=== PATIENT | female | born 1975 | race Caucasian/White ===

== ENCOUNTER 2016-08-11 18:52 | Emergency (ER) | payer MEDICAID ==
[~2016-08-11] VITALS: Ht 167.6 cm; Wt 64.4 kg
[2016-08-11 19:27] VITALS: BP 151/84
[2016-08-11] MEDS ORDERED: Metoclopramide 10mg/10ml Liq ORAL ONE (19:30)
[2016-08-11 20:02] LABS: APPEARANCE,URINE CLEAR; KETONES,URINE NEGATIVE (NEGATIVE); LEUKOCYTE ESTERASE ,URINE 1+ (NEGATIVE); NITRITE,URINE NEGATIVE (NEGATIVE); PH,URINE 7 (4.5-8.0); PROTEIN,URINE NEGATIVE (NEGATIVE); UROBILINOGEN,URINE NORMAL MG/DL (0.0-1.0)
[2016-08-11 20:07] LABS: AMORPHOUS SEDIMENT,UR FEW /LPF; BACTERIA,URINE FEW /HPF; RBC,URINE 0-2 /HPF (0 - 2); SQUAMOUS EPITHELIAL CELL,UR FEW /LPF (NONE/OCC); WBC,URINE 0-2 /HPF (0 - 2)
[2016-08-11] MEDS ORDERED: PHENAZOPYRIDIN100 MG ORAL (20:30)
[2016-08-11] MEDS ORDERED: NITROFURANTOIN100 M2 ORAL (20:30)
[2016-08-11 20:54] VITALS: BP 122/67
--- NOTE | 2016-08-11 21:14 | Emergency Room Report ---
History of Present Illness General Chief Complaint: Abdominal Pain Source: Patient Present Illness HPI The patient is a 41-year-old female presenting for dysuria and right flank pain which began 5 days prior. The patient describes the pain as a 5/10 burning sensation which occurs only with urination. The patient also has right-sided lower back pain which is also described as a 5/10 dull ache. The patient denies other symptoms including nausea, vomiting, hematuria, vaginal discharge, no motor is urinary discharge, fever, chills Allergies: Coded Allergies: No Known Allergies (Unverified , 08/11/16) Patient History Past Medical History: see triage record Pertinent Family History: none Last Menstrual Period: 07/28/16 Now: No Reviewed Nursing Documentation: PMH: Agreed, PSxH: Agreed Nursing Documentation-PMH Past Medical History: No Stated History Review of Systems All Other Systems: negative except mentioned in HPI Physical Exam Vital Signs Date Time Temp Pulse Resp B/P Pulse Ox O2 Delivery O2 Flow Rate FiO2 08/11/16 19:17 98.4 66 16 151/84 99 Room Air Sp02 EP Interpretation: reviewed, normal General Appearance: no apparent distress, alert, GCS 15, non-toxic Head: normocephalic, atraumatic Eyes: bilateral eye PERRL, bilateral eye normal inspection ENT: hearing grossly normal, normal pharynx, no angioedema, normal voice Gastrointestinal: normal bowel sounds, soft, non-distended, no guarding, no rebound, tenderness - suprapubic Rectal: deferred Genitourinary: CVA tenderness (R) Musculoskeletal: back normal, gait/station normal, normal range of motion, non- tender Neurologic: alert, oriented x3, responsive, motor strength/tone normal, sensory intact, speech normal Psychiatric: judgement/insight normal, memory normal, mood/affect normal, no suicidal/homicidal ideation Skin: normal color, no rash, warm/dry, well hydrated Lymphatic: no adenopathy Medical Decision Making PA Attestation Dr. Porter is my supervising physician. Patient management was discussed with my supervising physician Diagnostic Impression: Primary Impression: Urinary tract infection ER Course The patient is a 41-year-old female presenting for dysuria and right flank pain which began 5 days prior Differential diagnosis considered but not limited to: UTI, vaginitis, pyelonephritis, pyelonephrosis, PID, ectopic PE: Vitals WNL. NAD. Abd is soft. Normal BS. + suprapubic TTP. No RLQ TTP. + R CVA tenderness. Skin warm and dry. Preg: neg UA: 1+ leuk esterase with 0-2 WBC. The patient was given Tylenol, Reglan, and IV fluids and is feeling better. The patient will be treated for urinary tract infection based on symptoms.ER precautions given. Pt rashi FU with pmd Laboratory Tests Test 08/11/16 19:26 Urine Color Pale yellow Urine Appearance Clear Urine pH 7 (4.5-8.0) Urine Specific [place] 1.010 (1.005-1.035) Urine Protein Negative (NEGATIVE) Urine Glucose (UA) Negative (NEGATIVE) Urine Ketones Negative (NEGATIVE) Urine Occult Blood 1+ (NEGATIVE) H Urine Nitrite Negative (NEGATIVE) Urine Bilirubin Negative (NEGATIVE) Urine Urobilinogen Normal MG/DL (0.0-1.0) Urine Leukocyte Esterase 1+ (NEGATIVE) H Urine RBC 0-2 /HPF (0 - 2) Urine WBC 0-2 /HPF (0 - 2) Urine Squamous Epithelial Cells Few /LPF (NONE/OCC) Urine Amorphous Sediment Few /LPF (NONE) H Urine Bacteria Few /HPF (NONE) Urine HCG, Qualitative Negative Lab Results Impression Preg: neg UA: 1+ leuk esterase with 0-2 WBC. Last Vital Signs Date Time Temp Pulse Resp B/P Pulse Ox O2 Delivery O2 Flow Rate FiO2 08/11/16 20:54 73 12 122/67 100 Room Air 08/11/16 20:38 98.5 Status: improved Disposition: HOME, SELF-CARE Condition: Improved Scripts Phenazopyridine Hcl* (PYRIDIUM*) 100 Mg Tablet 100 MG ORAL THREE TIMES A DAY, #9 TAB Prov: TERZIAN,MARSHALL P.A. 08/11/16 Nitrofurantoin Monohyd/M-Cryst* (MACROBID 100 MG*) 100 Mg Capsule 100 MG ORAL EVERY 12 HOURS, #14 CAP Prov: TERZIAN,MARSHALL P.A. 08/11/16 Patient Instructions: Urinary Tract Infection Additional Instructions: I discussed my findings with the patient. All questions and concerns have been answered. Treatment and medication compliance have been addressed. I advised the patient that they need to follow up with PMD in 3-5 days. Return to ED if symptoms worsen, new symptoms arise, or if needed for any reason. Patient verbalized understanding of discharge instructions. MARSHALL BATISTA Aug 11, 2016 21:14
== END 2016-08-11 20:58 | disposition home or self-care (01) ==
LOC: EMR 20:04
DX: N39.0 Urinary tract infection, site not specified (principal)
CPT/HCPCS: 81001; 81025; 96360

== ENCOUNTER 2017-01-03 22:48 | Emergency (ER) | payer MEDICAID ==
[~2017-01-03] VITALS: Ht 172.7 cm; Wt 68.9 kg
[~2017-01-03 22:48] MED LIST: NITROFURANTOIN100 M2 ORAL; PHENAZOPYRIDIN100 MG ORAL
[2017-01-03] MEDS ORDERED: NKM (22:55)
[2017-01-03] MEDS ORDERED: Oxycodone/Acetaminophen 5-325 ORAL ONE (23:00)
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
[2017-01-03] MEDS ORDERED: ROBAXIN-750750 MG PO (23:15)
[2017-01-03] MEDS ORDERED: IBUPROFEN600 MG ORAL (23:15)
[2017-01-04 00:13] VITALS: BP 145/90
[2017-01-04 00:15] VITALS: BP 145/90
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
== END 2017-01-04 00:10 | disposition home or self-care (01) ==
LOC: EMR 01-04 00:10
DX: M54.2 Cervicalgia (principal); M25.531 Pain in right wrist; M79.631 Pain in right forearm; M79.641 Pain in right hand; V49.50XA Passenger injured in collision with unspecified motor vehicles in traffic accident, initial encounter; Y92.414 Local residential or business street as the place of occurrence of the external cause
CPT/HCPCS: 72125; 99284

== ENCOUNTER 2017-05-11 10:21 | Emergency (ER) | payer MEDICAID ==
[~2017-05-11] VITALS: Ht 165.1 cm; Wt 71.2 kg
[~2017-05-11 10:21] MED LIST changes: +IBUPROFEN600 MG ORAL; +NKM; +ROBAXIN-750750 MG PO
[2017-05-11] MEDS ORDERED: CYCLOBENZAPRINE10 MG ORAL (10:56)
[2017-05-11] MEDS ORDERED: IBUPROFEN600 MG ORAL (10:56)
[2017-05-11 11:00] VITALS: BP 113/60
[2017-05-11] MEDS ORDERED: Cyclobenzaprine 10mg Tab ORAL ONE (11:00)
[2017-05-11 11:15] VITALS: BP 113/60
--- NOTE | 2017-05-11 15:21 | Emergency Room Report ---
History of Present Illness General Chief Complaint: Chest Pain Source: Patient Present Illness HPI 41-year-old female presents ED for evaluation. States the last 3 days she's been experiencing pain in her chest right-sided neck and right arm. Pain is sharp, 6/10, nonradiating and worse with deep breaths and movement. Denies shortness of breath. Denies cardiac history. Denies smoking or drug use. No other aggravating or leading factors. Denies any other associated symptoms Allergies: Coded Allergies: No Known Allergies (Unverified , 08/11/16) Patient History Past Medical History: none Past Surgical History: none Pertinent Family History: none Social History: Denies: smoking, alcohol use, drug use Last Menstrual Period: 04/22/17 Now: No Immunizations: UTD Reviewed Nursing Documentation: PMH: Agreed, PSxH: Agreed Nursing Documentation-PMH Past Medical History: No Stated History Review of Systems All Other Systems: negative except mentioned in HPI Physical Exam Vital Signs Date Time Temp Pulse Resp B/P (MAP) Pulse Ox O2 Delivery O2 Flow Rate FiO2 05/11/17 10:42 98.8 84 16 134/69 100 Room Air Sp02 EP Interpretation: reviewed, normal General Appearance: no apparent distress, alert, GCS 15, non-toxic Head: normocephalic, atraumatic Eyes: bilateral eye normal inspection, bilateral eye PERRL ENT: hearing grossly normal, normal pharynx, no angioedema, normal voice Neck: full range of motion, no bony tend, supple/symm/no masses, tender lateral Respiratory: chest non-tender, normal breath sounds, speaking full sentences, other - reproducible chest wall pain Cardiovascular #1: regular rate, rhythm, no edema Cardiovascular #2: 2+ carotid (R), 2+ carotid (L), 2+ radial (R), 2+ radial (L) , 2+ dorsalis pedis (R), 2+ dorsalis pedis (L) Gastrointestinal: normal bowel sounds, non tender, soft, non-distended, no guarding, no rebound Rectal: deferred Genitourinary: normal inspection, no CVA tenderness Musculoskeletal: back normal, gait/station normal, normal range of motion, non- tender Neurologic: alert, oriented x3, responsive, motor strength/tone normal, sensory intact, speech normal Psychiatric: judgement/insight normal, memory normal, mood/affect normal, no suicidal/homicidal ideation Reflexes: 3+ bicep (R), 3+ bicep (L), 3+ tricep (R), 3+ tricep (L), 3+ knee (R) , 3+ knee (L) Skin: normal color, no rash, warm/dry, well hydrated Lymphatic: no adenopathy Medical Decision Making Diagnostic Impression: Primary Impression: Chest wall pain ER Course Hospital Course 41-year-old female presents to ED complaining of R sided chest pain, neck pain no trauma Differential diagnoses include: Fracture, dislocation, sprain, contusion, bursitis Clinical course Patient placed on stretcher. After initial history, physical exam reveals an middle-aged female in no acute distress. There is some producible right-sided chest wall pain. Right-sided neck pain. No midline pain. Some pain over the deltoid. EKG unremarkable - NSR no acute ischemic changes interpreted by me I believe pain is muscular. Patient has no risk factors suggestive of cardiac etiology. Patient be safely discharged home Diagnosis - chest wall pain Stable and discharged to home with prescription for Motrin. Followup with PMD. Return to ED if symptoms recur or worsen EKG Diagnostic Results Rate: normal Rhythm: NSR ST Segments: no acute changes ASA given to the pt in ED: No Rhythm Strip Diag. Results EP Interpretation: yes Rhythm: NSR, no PVC's, no ectopy Last Vital Signs Date Time Temp Pulse Resp B/P (MAP) Pulse Ox O2 Delivery O2 Flow Rate FiO2 05/11/17 10:42 98.8 84 16 134/69 100 Room Air Status: improved Disposition: HOME, SELF-CARE Condition: Stable Scripts Cyclobenzaprine Hcl* (FLEXERIL*) 10 Mg Tablet 10 MG ORAL TID Y for Muscle Spasm, #20 TAB Prov: STEVE CARVAJAL M.D. 05/11/17 Ibuprofen* (MOTRIN*) 600 Mg Tablet 600 MG ORAL Q8H Y for For Pain, #30 TAB 0 Refills Prov: STEVE CARVAJAL M.D. 05/11/17 Referrals: NON PHYSICIAN (PCP) Patient Instructions: Chest Wall Pain, [id number] STEVE CARVAJAL M.D. May 11, 2017 15:21
== END 2017-05-11 11:15 | disposition home or self-care (01) ==
LOC: EMR 11:00
DX: R07.89 Other chest pain (principal)
CPT/HCPCS: 99284

== ENCOUNTER 2018-08-02 11:13 | Emergency (ER) | payer MEDICAID ==
[~2018-08-02] VITALS: Ht 127 cm; Wt 68.0 kg
[~2018-08-02 11:13] MED LIST changes: +CYCLOBENZAPRINE10 MG ORAL
[2018-08-02 11:41] VITALS: BP 130/81
--- NOTE | 2018-08-02 11:41 | NUR ---
ED Nurse Note:pt. came with c/o chest pain radiating to left arm and abd pain, EKG done
[2018-08-02 12:10] LABS: BILIRUBIN, URINE NEGATIVE (NEGATIVE); COLOR,URINE PALE YELLOW; GLUCOSE, URINE (UA) NEGATIVE (NEGATIVE); KETONES,URINE NEGATIVE (NEGATIVE); LEUKOCYTE ESTERASE ,URINE 3+ (NEGATIVE); NITRITE,URINE NEGATIVE (NEGATIVE); PH,URINE 7 (4.5-8.0); PROTEIN,URINE NEGATIVE (NEGATIVE); UROBILINOGEN,URINE NORMAL MG/DL (0.0-1.0)
[2018-08-02 12:15] LABS: BASOPHILS % (AUTO) 1.5 % (0.0-2.0); EOSINOPHILS % (AUTO) 2.1 % (0.0-3.0); HEMATOCRIT 41.9 % (37.0-47.0); HEMOGLOBIN 14.6 G/DL (12.0-16.0); LYMPHOCYTES % (AUTO) 25.3 % (20.0-45.0); MEAN CORPUSCULAR VOLUME 88 FL (80-99); MONOCYTES % (AUTO) 5.1 % (1.0-10.0); PLATELET COUNT 250 K/UL (150-450); RED BLOOD COUNT 4.76 M/UL (4.20-5.40); RED CELL DISTRIBUTION WIDTH 11.4 % (11.6-14.8); WHITE BLOOD COUNT 7.1 K/UL (4.8-10.8)
[2018-08-02 12:19] LABS: APPEARANCE,URINE SLIGHTLY CLOUDY
[2018-08-02 12:22] LABS: ANION GAP 9 mmol/L (5-15); BLOOD UREA NITROGEN 7 mg/dL (7-18); CALCIUM 9.4 MG/DL (8.5-10.1); CARBON DIOXIDE 28 MMOL/L (21-32); CHLORIDE 103 MMOL/L (98-107); CREATININE 0.6 MG/DL (0.55-1.30); POTASSIUM 4.4 MMOL/L (3.5-5.1); SODIUM 140 MMOL/L (136-145)
[2018-08-02 12:27] LABS: ALANINE AMINOTRANSFERASE 34 U/L (12-78); ALBUMIN 3.9 G/DL (3.4-5.0); ALKALINE PHOSPHATASE 104 U/L (46-116); ASPARTATE AMINO TRANSFERASE 36 U/L (15-37); BILIRUBIN,TOTAL 0.3 MG/DL (0.2-1.0)
--- NOTE | 2018-08-02 12:41 | Diagnostic Imaging Report ---
Indication: Chest pain Comparison: None A single view chest radiograph was obtained. Findings: Cardiomediastinal appearance is within normal limits for age. The lungs are clear. Pulmonary vascularity is appropriate. The diaphragmatic contour is smooth and costophrenic angles are sharp. No pleural effusions are identified. The bones are unremarkable. Impression: No acute findings
[2018-08-02] MEDS ORDERED: Acetaminophen 500mg (ES) tab ORAL ONE (12:45)
--- NOTE | 2018-08-02 13:56 | Emergency Room Report ---
History of Present Illness General Chief Complaint: Chest Pain Source: Patient Present Illness HPI 42-year-old female with no major medical problems presents with global headache , chest pain, epigastric abdominal pain, reports symptoms going on for about 4 days, she reports she's had similar symptoms in the past, she did not try any medications for her, denies nausea, vomiting, diarrhea, syncope, vision complaints, numbness, tingling, weakness. Allergies: Coded Allergies: No Known Allergies (Unverified , 08/11/16) Patient History Past Medical History: see triage record Now: No Reviewed Nursing Documentation: PMH: Agreed; PSxH: Agreed Nursing Documentation-PMH Past Medical History: No Stated History Review of Systems All Other Systems: negative except mentioned in HPI Physical Exam Vital Signs Date Time Temp Pulse Resp B/P (MAP) Pulse Ox O2 Delivery O2 Flow Rate FiO2 08/02/18 11:17 98.1 80 18 149/77 99 Room Air Sp02 EP Interpretation: reviewed, normal General Appearance: normal inspection, well appearing, no apparent distress, alert, non-toxic Head: normocephalic, atraumatic Eyes: bilateral eye normal inspection, bilateral eye PERRL, bilateral eye EOMI ENT: normal ENT inspection, hearing grossly normal, normal pharynx, no angioedema, normal voice, moist mucus membranes Neck: normal inspection, full range of motion, supple, supple/symm/no masses Respiratory: chest non-tender, lungs clear, normal breath sounds, no rhonchi, no respiratory distress, no retraction, no accessory muscle use, no wheezing, chest symmetrical, palpation of chest normal Cardiovascular #1: normal peripheral pulses, regular rate, rhythm, no edema, no gallop, no JVD, no murmur, no rub Cardiovascular #2: 2+ radial (R), 2+ radial (L) Gastrointestinal: normal inspection, non tender, soft, no mass, no guarding, no rebound Rectal: deferred Genitourinary: normal inspection, no CVA tenderness Musculoskeletal: back normal, gait/station normal, normal range of motion, non- tender, no calf tenderness Neurologic: alert, oriented x3, responsive, drum sprayer III-XII nml as tested, motor strength/tone normal, sensory intact, speech normal Psychiatric: judgement/insight normal, memory normal, mood/affect normal Skin: normal color, no rash, warm/dry, normal turgor Lymphatic: no adenopathy Medical Decision Making Diagnostic Impression: Primary Impression: Chest pain ER Course Patient with no risk factors for any vascular illness, felt better after just getting Tylenol, never had active chest pain, abdominal pain was also very vague , headache resolved with Tylenol patient not hypertensive normal pulse examination no recent travel do not suspect any vascular abnormalities either, very well-appearing will discharge with reassurance, possible anxiety mediated symptoms, patient states she understands and agrees to return if symptoms recur. Last Vital Signs Date Time Temp Pulse Resp B/P (MAP) Pulse Ox O2 Delivery O2 Flow Rate FiO2 08/02/18 11:41 98.1 78 18 130/81 99 Room Air Disposition: HOME, SELF-CARE Condition: Stable Referrals: NON PHYSICIAN (PCP) KATHRYN ALLRED M.D Aug 02, 2018 13:56
[2018-08-02] MEDS ORDERED: ACETAMINOPHEN325 M1 ORAL (13:58)
[2018-08-02 14:00] VITALS: BP 130/81
--- NOTE | 2018-08-02 14:00 | NUR ---
ED Nurse Note: Patient is medically ceared to leave the ED. Patient is alert and oriented x4, ambulatory with a steady gait, VSS, patient acknowledges the need to follow up with PMD within a week if symptoms dont improve, prescriptions given to patient, all belongings sent home. ID band and IV line removed.
--- NOTE | 2018-08-03 16:18 | Cardiology Report ---
APPROVED REPORT EKG Measurement Heart [id number] Normal sinus rhythm Possible Left atrial enlargement Borderline ECG
== END 2018-08-02 14:00 | disposition home or self-care (01) ==
LOC: EMR 11:55
DX: R07.9 Chest pain, unspecified (principal); R10.13 Epigastric pain; R51 Headache
CPT/HCPCS: 36415; 71045; 80053; 81001; 81025; 83690; 84484; 85025; 93005; 99283

== ENCOUNTER 2018-10-11 19:53 | Emergency (ER) | payer MEDICAID ==
[~2018-10-11] VITALS: Ht 165.1 cm; Wt 65.8 kg
[~2018-10-11 19:53] MED LIST changes: +ACETAMINOPHEN325 M1 ORAL
[2018-10-11] MEDS ORDERED: FLUTICASONE PRO16 G1 NASAL (20:08)
[2018-10-11] MEDS ORDERED: ZYRTEC10 MG ORAL (20:08)
--- NOTE | 2018-10-11 20:15 | NUR ---
ED Nurse Note: Patient walked into ED c/o generalized body pain since wednesday. patient denies any fall or trauma, states shes feeling right sided pain along with a headache. AO4. NAD
--- NOTE | 2018-10-11 20:22 | NUR ---
ED Nurse Note: URINE COLLECTED; SENT DOWN TO LAB.
[2018-10-11 20:37] LABS: APPEARANCE,URINE SLIGHTLY CLOUDY; BILIRUBIN, URINE NEGATIVE (NEGATIVE); COLOR,URINE PALE YELLOW; GLUCOSE, URINE (UA) NEGATIVE (NEGATIVE); KETONES,URINE NEGATIVE (NEGATIVE); LEUKOCYTE ESTERASE ,URINE 1+ (NEGATIVE); NITRITE,URINE NEGATIVE (NEGATIVE); PH,URINE 7 (4.5-8.0); PROTEIN,URINE NEGATIVE (NEGATIVE); UROBILINOGEN,URINE NORMAL MG/DL (0.0-1.0)
--- NOTE | 2018-10-11 20:43 | Emergency Room Report ---
History of Present Illness General Chief Complaint: Pain Source: Patient Present Illness HPI 43-year-old female presenting with right-sided back pain. No fever no chills. Also complains of slight dysuria. No anterior abdominal pain. She does have a history of an appendectomy. No nausea vomiting diarrhea. Also says that it is radiating up to her neck as well. Pain is constant. 3 out of 10 pain. No history of kidney stones Allergies: Coded Allergies: No Known Allergies (Unverified , 08/11/16) Patient History Past Medical History: see triage record Past Surgical History: none Pertinent Family History: none Last Menstrual Period: 09/25/18 Now: No : 0 Para: 0 Reviewed Nursing Documentation: PMH: Agreed; PSxH: Agreed Nursing Documentation-PMH Past Medical History: No Stated History Review of Systems All Other Systems: negative except mentioned in HPI Physical Exam Vital Signs Date Time Temp Pulse Resp B/P (MAP) Pulse Ox O2 Delivery O2 Flow Rate FiO2 10/11/18 20:02 98.2 70 18 146/88 99 Room Air Sp02 EP Interpretation: reviewed, normal General Appearance: alert, GCS 15, non-toxic, mild distress Head: normocephalic, atraumatic Eyes: bilateral eye normal inspection, bilateral eye PERRL, bilateral eye EOMI ENT: normal ENT inspection, normal pharynx, normal voice, moist mucus membranes Neck: normal inspection, full range of motion, supple Respiratory: normal inspection, lungs clear, normal breath sounds, no respiratory distress, no retraction, no wheezing, speaking full sentences, chest symmetrical Cardiovascular #1: normal inspection, regular rate, rhythm, no edema, normal capillary refill Cardiovascular #2: 2+ radial (R), 2+ radial (L) Gastrointestinal: normal inspection, non tender, soft, non-distended, no guarding Musculoskeletal: normal inspection, back normal, normal range of motion, non- tender Neurologic: normal inspection, alert, oriented x3, responsive, motor strength/ tone normal, sensory intact, normal gait, speech normal Psychiatric: normal inspection, judgement/insight normal, memory normal Skin: normal inspection, normal color, no rash, warm/dry, well hydrated, normal turgor Medical Decision Making Diagnostic Impression: Primary Impression: Urinary tract infection ER Course 43-year-old female with right-sided back pain DDX: Musculoskeletal versus UTI/pyelonephritis She does not seem to be in in extreme pain at all to suggest kidney stone She has a history of appendectomy, nontender abdomen Plan: Urine ER course: Patient has remained stable during ED stay. URINE only with few bacteria -- however will treat as UTI as pt saying she has dysuria Disposition: Patient is to be discharged to home. Prescriptions given are keflex Patient is instructed to follow up with their primary care doctor within 5 days. Strict return precautions discussed with patient such as fever, chills, worsening/severe pain, chest pain, SOB, nausea, vomiting, which may indicate severe illness. Patient verbalizes understanding and agrees with plan. Please note that this Emergency Department Report was dictated using [facility] service technician technology software, occasionally this can lead to erroneous entry secondary to interpretation by the dictation equipment Laboratory Tests Test 10/11/18 20:20 Urine Color Pale yellow Urine Appearance Slightly cloudy Urine pH 7 (4.5-8.0) Urine Specific [place] 1.010 (1.005-1.035) Urine Protein Negative (NEGATIVE) Urine Glucose (UA) Negative (NEGATIVE) Urine Ketones Negative (NEGATIVE) Urine Blood Negative (NEGATIVE) Urine Nitrite Negative (NEGATIVE) Urine Bilirubin Negative (NEGATIVE) Urine Urobilinogen Normal MG/DL (0.0-1.0) Urine Leukocyte Esterase 1+ (NEGATIVE) H Urine RBC 0 /HPF (0 - 2) Urine WBC 5-10 /HPF (0 - 2) H Urine Squamous Epithelial Cells Many /LPF (NONE/OCC) H Urine Bacteria Few /HPF (NONE) Urine HCG, Qualitative Negative (NEGATIVE) Last Vital Signs Date Time Temp Pulse Resp B/P (MAP) Pulse Ox O2 Delivery O2 Flow Rate FiO2 10/11/18 20:02 98.2 70 18 146/88 99 Room Air Disposition: HOME, SELF-CARE Condition: Stable Scripts Cephalexin* (KEFLEX*) 500 Mg Capsule 500 MG ORAL EVERY 6 HOURS for 7 Days, #28 CAP Prov: Ninfa Kenney M.D. 10/11/18 Ninfa Kenney M.D. Oct 11, 2018 20:43
[2018-10-11] MEDS ORDERED: CEPHALEXIN500 MG ORAL (20:49)
[2018-10-11 20:55] VITALS: BP 146/88
--- NOTE | 2018-10-11 20:55 | NUR ---
ER DISCHARGE NOTE: Patient is cleared to be discharged per ERMD, pt is aox4, on room air, with stable vital signs. Accompanied by family member. pt was given dc and prescription instructions, pt was able to verbalize understanding, pt id band removed. pt is able to ambulate with steady gait. pt took all belongings.
== END 2018-10-11 20:55 | disposition home or self-care (01) ==
LOC: EMR 20:15
DX: N39.0 Urinary tract infection, site not specified (principal); Z90.49 Acquired absence of other specified parts of digestive tract
CPT/HCPCS: 81003; 81025; 99283